=== PATIENT | female | born 1995 | race Caucasian/White ===

== ENCOUNTER 2023-08-21 23:43 | Emergency (ER) | payer MEDICARE, MEDICAID, SELFPAY ==
[2023-08-21 23:54] VITALS: BP 135/58; PULSE 72; RESP 16; TEMP 36.9; O2SAT 98; BMI 50.8
--- NOTE | 2023-08-22 01:45 | PC.NURSE ---
Pt reports chest pain to registration, Pt brought back to room 8. Pt states its mild, I was sitting for too long.
[2023-08-22 02:20] VITALS: BP 107/53; PULSE 64; RESP 20; O2SAT 100
--- NOTE | 2023-08-22 02:29 | ED.DENTAL ---
HPI - Dental/Oral General Chief complaint: Dental/Oral Stated complaint: infection in tooth Time Seen by Provider: 08/22/23 01:38 Source: patient Mode of arrival: Ambulatory History of Present Illness HPI Narrative: 28-year-old female presents for refill of antibiotics. Patient is on day 2 of Augmentin for a dental infection. She states that she lost the antibiotics this afternoon after taking her afternoon tablet. She was afraid that if she does not get back on antibiotics the infection will spread to her bloodstream. Reports jaw pain and a slight headache. No medications taken for headache or pain prior to arrival. Related Data Home Medications Medication Instructions Recorded Confirmed [AEROPOL] 20 mg PO QDAY ##0 08/13/16 mirtazapine 15 mg tablet 7.5 mg PO ##0 08/13/16 Previous Rx's Medication Instructions Recorded amoxicillin 875 mg-potassium 1 tab PO Q12H #14 tabs 08/22/23 clavulanate 125 mg tablet Allergies Allergy/AdvReac Type Severity Reaction Status Date / Time shellfish derived Allergy Unknown Unverified 07/30/17 12:43 [SHELLFISH DERIVED] Review of Systems Review of Systems Narrative: See HPI Patient History Social History Smoking Status: Never smoker Smoking Status: Never smoker Substance Use Type: does not use Exam Initial Vital Signs Initial Vital Signs: Vital Signs Temperature 98.4 F 08/21/23 23:54 Pulse Rate 72 08/21/23 23:54 Respiratory Rate 16 08/21/23 23:54 Blood Pressure 135/58 L 08/21/23 23:54 Pulse Oximetry 98 08/21/23 23:54 Oxygen Delivery Method Room Air 08/21/23 23:54 Const: Awake, alert, no acute distress, nontoxic appearing Mouth: Broken tooth left upper molar, no obvious abscess, no trismus, no pooling of secretions Skin: Warm, Dry, intact, no rashes Neuro: AO x3, CN II-XII grossly intact, moves all extremities Course Vital Signs Vital signs: Vital Signs - 8 hr 08/21/23 23:54 08/22/23 02:20 Temperature 98.4 F Pulse Rate 72 64 Respiratory Rate 16 20 Blood Pressure 135/58 L 107/53 L Pulse Oximetry 98 100 Oxygen Delivery Method Room Air Room Air MDM - Dental/Oral Differential Diagnosis Differential diagnosis: Likely gingival abscess, dental caries and toothache MDM Narrative Medical decision making narrative: Nontoxic patient presenting for antibiotic refill. She can not find her prescription of Augmentin and has been on it for approximately 2 days. She does have a broken tooth in the left upper molar region, however no evidence of periodontal swelling or abscess. Vital signs are normal, there is absolutely no evidence of sepsis or impending bloodstream infection. Refill of antibiotics sent to pharmacy of choice. Note for work provided Discharge Plan Departure Patient Disposition: Home Clinical Impression: Dental caries, Toothache Instructions: DI for Dental Pain Activity Restrictions/Additional Instructions: TAKE TYLENOL AND IBUPROFEN NEEDED FOR PAIN. ANTIBIOTICS HAVE BEEN SENT TO YOUR PHARMACY. MAKE SURE TO FOLLOW UP WITH YOUR DENTIST SCHEDULED Prescriptions: New amoxicillin-pot clavulanate 875-125 mg tablet 1 tab PO Q12H Qty: 14 0RF No Action mirtazapine 15 MG tablet 7.5 mg PO Qty: 0 [AEROPOL] 20 mg PO QDAY Qty: 0 Stand Alone Forms: Patient Portal/API, Work Release Note
== END 2023-08-22 02:42 | disposition home or self-care (01) ==
PROVIDERS: Emergency Provider Emergency Medicine
DX: K02.9 Dental caries, unspecified (principal)
CPT/HCPCS: 99281; 99283

== ENCOUNTER 2024-01-25 21:21 | Emergency (ER) | payer MEDICARE, MEDICAID, SELFPAY ==
[2024-01-25 21:55] VITALS: BP 119/60; PULSE 80; RESP 16; TEMP 37.1; O2SAT 98; BMI 53.4
--- NOTE | 2024-01-25 22:40 | ED.GENADULT ---
HPI - General Adult General Chief complaint: Urogenital-Female Stated complaint: 'female issues' poss allergic reaction Time Seen by Provider: 01/25/24 22:15 Source: patient Mode of arrival: Family Vehicle History of Present Illness HPI narrative: Patient is a 20-year-old female who is here for evaluation of a rash and pain down in her genital region. She recently was [facility] [place]. Was diagnosed with bacterial vaginosis. Has been taking Flagyl for the past couple days. She now has rash and discomfort in the vaginal region. Some pain with urination. She states that the rash does extend back to her buttocks. Related Data Home Medications Medication Instructions Recorded Confirmed [AEROPOL] 20 mg PO QDAY ##0 08/13/16 mirtazapine 15 mg tablet 7.5 mg PO ##0 08/13/16 Previous Rx's Medication Instructions Recorded amoxicillin 875 mg-potassium 1 tab PO Q12H #14 tabs 08/22/23 clavulanate 125 mg tablet acyclovir 800 mg tablet 800 mg PO 5XD 7 days #35 tabs 01/25/24 Allergies Allergy/AdvReac Type Severity Reaction Status Date / Time shellfish derived Allergy Unknown Unverified 07/30/17 12:43 [SHELLFISH DERIVED] Review of Systems Review of Systems Narrative: See HPI Patient History Social History Smoking Status: Never smoker Smoking Status: Never smoker Substance Use Type: does not use Exam Initial Vital Signs Initial Vital Signs: Vital Signs Temperature 98.8 F 01/25/24 21:55 Pulse Rate 80 01/25/24 21:55 Respiratory Rate 16 01/25/24 21:55 Blood Pressure 119/60 01/25/24 21:55 Pulse Oximetry 98 01/25/24 21:55 Oxygen Delivery Method Room Air 01/25/24 21:55 Other: With nursing stand by an/syq 13 nav/c2 operator a external pelvic exam was performed. Patient does have findings that are consistent with herpes genitalis with a vesicular rash located at the posterior aspect of the vaginal introitus along the labia majora. Skin Other: Skin rash that is consistent with genital herpes Course Orders Ordered: Discontinued Medications Acyclovir (Acyclovir 400 Mg Tablet) 800 mg PO NOW ONE Stop: 01/25/24 23:37 Last Admin: 01/25/24 23:52 Dose: 800 mg Documented By: AB Vital Signs Vital signs: Vital Signs - 8 hr 01/25/24 21:55 01/25/24 23:55 Temperature 98.8 F Pulse Rate 80 92 H Respiratory Rate 16 18 Blood Pressure 119/60 107/57 L Pulse Oximetry 98 95 Oxygen Delivery Method Room Air Room Air Medical Decision Making MDM Narrative Medical decision making narrative: Patient's history and physical exam is consistent with genital herpes. She was being treated for bacterial vaginosis and I recommend that she continue to take the medication for this. We discussed genital herpes. She was given a dose of oral medications here in the emergency department a prescription was sent to the pharmacy of her choice. She was given return precautions. She expressed understanding and agreement. Discharge Plan Departure Patient Disposition: Home Clinical Impression: Herpes genitalis Instructions: Genital Herpes Activity Restrictions/Additional Instructions: Continue to take the metronidazole/Flagyl as directed until gone. Start taking the acyclovir as directed. Contact your primary doctor for a follow-up. Return to the emergency department for new symptoms. Prescriptions: New acyclovir 800 mg tablet 800 mg PO 5XD 7 Days Qty: 35 0RF Rx Instructions: space evenly during waking hours No Action mirtazapine 15 MG tablet 7.5 mg PO Qty: 0 [AEROPOL] 20 mg PO QDAY Qty: 0 amoxicillin-pot clavulanate 875-125 mg tablet 1 tab PO Q12H Qty: 14 0RF Stand Alone Forms: Patient Portal/API, Work Release Note
[2024-01-25] MEDS: ACYCLOVIR 400 MG TABLET 800 MG PO (23:52)
[2024-01-25 23:55] VITALS: BP 107/57; PULSE 92; RESP 18; O2SAT 95
== END 2024-01-25 23:57 | disposition home or self-care (01) ==
PROVIDERS: Emergency Provider Emergency Medicine
DX: A60.00 Herpesviral infection of urogenital system, unspecified (principal)
CPT/HCPCS: 99283

== ENCOUNTER 2024-12-30 11:42 | Emergency (ER) | payer MEDICARE, MEDICAID, SELFPAY ==
[2024-12-30 11:45] VITALS: BP 135/63; PULSE 89; RESP 18; TEMP 36.8; O2SAT 99; BMI 54.1
--- NOTE | 2024-12-30 12:06 | PC.NURSE ---
Pt has red/raised, looks like a pimple, at right islam on face. States she was seen at walk in clinic and given antibiotics Friday. Reports pain continues to get worse. Also had red area on left abdomen that is tender, states I popped that one on friday.
--- NOTE | 2024-12-30 12:08 | ED_ITS ---
HPI - Skin/Abscess/Foreign Bdy <Santos Pink PA-C - Last Filed: 12/30/24 12:52> General Chief complaint: Skin/Abscess/Foreign Body Stated complaint: Sent from [facility] Time Seen by Provider: 12/30/24 12:08 Source: patient Mode of arrival: Ambulatory Limitations: no limitations History of Present Illness HPI narrative: This is a 29-year-old female presents emergency department due to concerns of a MRSA infection. His she was seen for lesion to her stomach by a walk-in clinic on [facility] and initially presented Keflex but then prescribed Bactrim after the culture came back positive for MRSA. She was developed a small pimple to her right jehovah's witness that she was concerned about. She denies any fevers, nausea, vomiting, or any other concerning signs or symptoms. Related Data Home Medications ?Medication ?Instructions ?Recorded ?Confirmed [AEROPOL] 20 mg PO QDAY ##0 08/13/16 mirtazapine 15 mg tablet 7.5 mg PO ##0 08/13/16 Previous Rx's ?Medication ?Instructions ?Recorded amoxicillin 875 mg-potassium 1 tab PO Q12H #14 tabs clavulanate 125 mg tablet Allergies Allergy/AdvReac Type Severity Reaction Status Date / Time shellfish derived (SHELLFISH Allergy Unknown Unverified 12/30/24 11:47 DERIVED) ibuprofen AdvReac Mild Headache Verified 12/30/24 11:47 Review of Systems <Santos Pink PA-C - Last Filed: 12/30/24 12:52> Review of Systems Narrative: GENERAL: Denies chills, fatigue, malaise, fever, sweats. HEENT: Denies sinus pain, ear pain, sore throat, difficulty swallowing, dizziness. RESPIRATORY: Denies dyspnea, cough, wheezing, hemoptysis, sputum. CARDIOVASCULAR: Denies chest pain, palpitations, orthopnea, edema, GASTROINTESTINAL: Denies nausea, vomiting, abdominal pain, diarrhea, c onstipation, melena. : Denies dysuria, frequency, incontinence, hematuria, urinary retention. MUSCULOSKELETAL: denies weakness, joint pain, or bony pain SKIN: Pimple to right jehovah's witness NEUROLOGIC: Denies weakness, headache, numbness, change in speech, confusion, seizures, incoordination. PSYCHIATRIC: No concerning psychosocial issues. 12 point review of systems is negative except for those stated above Patient History <Santos Pink PA-C - Last Filed: 12/30/24 12:52> Social History Smoking Status: Never smoker Smoking Status: Never smoker Exam <Santos Pink PA-C - Last Filed: 12/30/24 12:52> Narrative Exam Narrative: GENERAL: Well-developed patient, in mild distress. HEAD: Atraumatic. Normocephalic. EYES: Pupils equal round and reactive. Extraocular motions intact. No scleral icterus. No injection or drainage. ENT: Nose without bleeding, purulent drainage. Throat without erythema, tonsillar hypertrophy or exudate. Airway patent. NECK: Trachea midline. Non tender EXTREMITIES: No edema or joint tenderness. NEURO: AOx3. SKIN: Closed comedone to the right jehovah's witness. No significant spreading erythema. Well-healing lesion to the abdomen as well. Initial Vital Signs Initial Vital Signs: Vital Signs Temperature 98.3 F 12/30/24 11:45 Pulse Rate 89 12/30/24 11:45 Respiratory Rate 18 12/30/24 11:45 Blood Pressure 135/63 12/30/24 11:45 Pulse Oximetry 99 12/30/24 11:45 Oxygen Delivery Method Room Air 12/30/24 11:45 <Vicky Go DO - Last Filed: 12/30/24 18:27> Initial Vital Signs Initial Vital Signs: Vital Signs Temperature 98.3 F 12/30/24 11:45 Pulse Rate 89 12/30/24 11:45 Respiratory Rate 18 12/30/24 11:45 Blood Pressure 135/63 12/30/24 11:45 Pulse Oximetry 99 12/30/24 11:45 Oxygen Delivery Method Room Air 12/30/24 11:45 Course <Santos Pink PA-C - Last Filed: 12/30/24 12:52> Vital Signs Vital signs: Vital Signs - 8 hr 12/30/24 11:45 12/30/24 12:54 Temperature 98.3 F 97.6 F Pulse Rate 89 72 Respiratory Rate 18 18 Blood Pressure 135/63 113/53 L Pulse Oximetry 99 99 Oxygen Delivery Method Room Air Room Air <Vicky Go DO - Last Filed: 12/30/24 18:27> Vital Signs Vital signs: Vital Signs - 8 hr 12/30/24 11:45 12/30/24 12:54 Temperature 98.3 F 97.6 F Pulse Rate 89 72 Respiratory Rate 18 18 Blood Pressure 135/63 113/53 L Pulse Oximetry 99 99 Oxygen Delivery Method Room Air Room Air MDM - Skin/Abscess/Foreign Bdy <Santos Pink PA-C - Last Filed: 12/30/24 12:52> MDM Narrative Medical decision making narrative: ED course: This is a 29-year-old female presents to the emergency department due to a closed comedone to the right jehovah's witness. She was concerned that she was ?blood infection?. All vitals unremarkable and very low concern for sepsis. Patient reports being swabbed and positive for MRSA and has been appropriately been treated with Bactrim by an outside clinic. Patient was reassured that very low concern for any kind of worsening infection. Recommended supportive care for the closed comedone to the right jehovah's witness. CC: MRSA infection Complicating co-morbidities: None Data collected from: Previous notes Medical records reviewed: Patient was last seen in this emergency department roughly a year ago due to genital herpes. Prescribed acyclovir. No pertinent medical history. Differential considered, but not limited to: Sepsis, closed comedone, abscess Exam documented above, pertinent findings include: No significant spreading erythema of the comedone to the right jehovah's witness Lab Test results independently reviewed as above. Pertinent findings: None obtained Imaging studies independently reviewed: None obtained Scores Used: None MIPS Elements: None Consultations: None Treatments: None Re-evaluations: None Discussion: Discussed plan with the patient was comfortable with the plan Diagnosis: Close comedone Disposition: see below, along with detailed discharge instructions that have been reviewed with patient as well as indications for ED re-evaluation and additional outpatient follow up Discharge Plan Departure Patient Disposition: Home Clinical Impression: Closed comedone Activity Restrictions/Additional Instructions: Thank you for coming to the [facility] Emergency Department today. Please continue to take the rest of the antibiotics were prescribed by the outside clinic. I suspect this should improve over the next couple of weeks with gentle washing with warm water and soap. I have very low concern for any kind of ?blood infection?. Please return to the emergency department if you develop any significant fevers, the spot on your jehovah's witness gets much worse, or any other concerning signs or symptoms. I hope you feel better soon. Please follow up with your primary care provider within a week if your symptoms continue. If you do not have a primary care provider please contact the [facility] Resource line at [phone]. They will ask some questions about your medical history and help you get set up with a provider in the community. Prescriptions: No Action mirtazapine 15 MG tablet 7.5 mg PO Qty: 0 [AEROPOL] 20 mg PO QDAY Qty: 0 amoxicillin-pot clavulanate 875-125 mg tablet 1 tab PO Q12H Qty: 14 0RF Stand Alone Forms: Patient Portal/API, Work Release Note ED Sign-out <Vicky Go, - Last Filed: 12/30/24 18:27> Cosign ED Attending Izabel Attestation: I was immediately available in the department for consultation.
[2024-12-30 12:54] VITALS: BP 113/53; PULSE 72; RESP 18; TEMP 36.4; O2SAT 99
== END 2024-12-30 12:54 | disposition home or self-care (01) ==
PROVIDERS: Emergency Provider Physician Assistant Medical
DX: L70.0 Acne vulgaris (principal)
CPT/HCPCS: 99281